=== PATIENT | female | born 1970 | race Caucasian/White ===

== ENCOUNTER 2022-04-23 01:24 | Day surgery (SDC) | payer BC, SELFPAY ==
[2022-04-14 11:23] VITALS: BMI 43.1
[2022-04-23 10:29] VITALS: BP 152/97; PULSE 91; RESP 18; TEMP 36.2; O2SAT 99
[2022-04-23] MEDS: LACTATED RINGERS 1,000 ML 150 ML IV CONT (10:42)
--- NOTE | 2022-04-23 10:51 | WPDGICN ---
Assessment and Plan Assessment and plan (1) GERD (gastroesophageal reflux disease): Code(s): K21.9 - Gastro-esophageal reflux disease without esophagitis Status: Acute Assessment and Plan: Patient with symptoms that appear to correlate with acid reflux disease. She has substernal burning. It these appear to improve on taking acid suppression medications. Continued anti-reflux measures are encouraged because of chronic GE reflux symptoms an EGD will be performed. Continuing pantoprazole 40mg p.o. daily in the interim is advised. Further recommendations may be given after endoscopy. (2) Encounter for screening colonoscopy: Code(s): Z12.11 - Encounter for screening for malignant neoplasm of colon Status: Acute Assessment and Plan: Colonoscopy is recommended for screening purposes because of her age. She appears to be at average risk for colon polyps. Further recommendations will be given after endoscopy. (3) IBS (irritable bowel syndrome): Code(s): K58.9 - Irritable bowel syndrome without diarrhea Status: Acute Assessment and Plan: Fiber supplements may help her alternating diarrhea and constipation. FiberCon 2 tabs p.o. b.i.d. suggested. Colonoscopy to be performed for screening today will assess for any other possible etiologies for symptoms. (4) Obese: Code(s): E66.9 - Obesity, unspecified Status: Acute Assessment and Plan: Weight loss with calorie restriction increase activity are strongly encouraged. GI Consult Note Consult date/time: 04/23/22 10:51 Reason for consult: Epigastric pain in [place] a screening. HPI: Tami Huddleston is a 52 year old female Presents for GI endoscopy. Patient has a long history of GE reflux. She complains of abdominal bloating and pressure that has worsened over last 1 year. She does have a history of substernal burning pain on drinking spicy foods and sodas. She denies this with most regular foods but does notice it with spicy foods. She notices it when taking medications such as trazodone. She was started on pantoprazole over last 1 year with some improvement in her symptoms they have not totally abated. Because of ongoing symptoms an EGD is requested. Patient also notices alternating diarrhea constipation attributed to irritable bowel syndrome. Taking increased fiber has helped this to some degree. She denies any bleeding. She has had no weight loss. Her family history is noncontributory. Review of Systems Review of Systems: Review of systems noncontributory. [facility] Social History Social History Smoking status: Former smoker Tobacco type: cigarettes Alcohol intake: current Drinks per week: 2 Substance use: current Substance use type: marijuana Other substance usage details: CBD/THC GUMMIES Living arrangements: with family Spiritual care concerns: No Meds Home Medications and Allergies Home Medications Medication Instructions Recorded Confirmed Type amlodipine 2.5 mg tablet 2.5 mg PO DAILY 04/14/22 04/14/22 History atorvastatin 20 mg tablet 20 mg PO HS 04/14/22 04/14/22 History clonazepam 0.5 mg tablet 0.5 mg PO DAILY PRN Anxiety 04/14/22 04/14/22 History levothyroxine 150 mcg tablet 150 mcg PO DAILY 04/14/22 04/14/22 History linaclotide 145 mcg capsule 1 cap PO DAILY 04/14/22 04/14/22 History (Linzess) pantoprazole 40 mg tablet,delayed 40 mg PO DAILY 04/14/22 04/14/22 History release sertraline 50 mg tablet (Zoloft) 75 mg PO HS 04/14/22 04/14/22 History trazodone 50 mg tablet 100 mg PO HS 04/14/22 04/14/22 History Allergies Allergy/AdvReac Type Severity Reaction Status Date / Time Sulfa (Sulfonamide Allergy Mild Other Verified 04/23/22 10:28 Antibiotics) Vital Signs Vital Signs - 24 hr 04/23/22 10:29 Temperature 97.2 F L Pulse Rate 91 Respiratory Rate 18 Blood Pressure 152/97 H Pulse Oximetry 99 Oxygen Delivery Room Air
--- NOTE | 2022-04-23 10:58 | P.PNAN_ITS ---
Anes - Initial Pre Proc Eval Procedure: Operation Date: 04/23/22 12:30 Proposed Procedures p Esophagogastroduodenoscopy & Colonoscopy - Milan De La Rosa MD Date/Time: 04/23/22 10:58 Surgeon: Milan De La Rosa MD Pre Op Diagnosis: epigastric pain, neoplasm, GERD, weight loss Patient Data Age: 52 Gender: F Height: 1.63 m Weight: 115.2 kg Last Vital Signs Temp 97.2 F L 04/23/22 10:29 Pulse 91 04/23/22 10:29 Resp 18 04/23/22 10:29 BP 152/97 H 04/23/22 10:29 Pulse Ox 99 04/23/22 10:29 O2 Del Method Room Air 04/23/22 10:29 Allergies Allergy/AdvReac Type Severity Reaction Status Date / Time Sulfa (Sulfonamide Allergy Mild Other Verified 04/23/22 10:28 Antibiotics) Home Medications Medication Instructions Recorded Confirmed Type amlodipine 2.5 mg tablet 2.5 mg PO DAILY 04/14/22 04/14/22 History atorvastatin 20 mg tablet 20 mg PO HS 04/14/22 04/14/22 History clonazepam 0.5 mg tablet 0.5 mg PO DAILY PRN Anxiety 04/14/22 04/14/22 History levothyroxine 150 mcg tablet 150 mcg PO DAILY 04/14/22 04/14/22 History linaclotide 145 mcg capsule 1 cap PO DAILY 04/14/22 04/14/22 History (Linzess) pantoprazole 40 mg tablet,delayed 40 mg PO DAILY 04/14/22 04/14/22 History release sertraline 50 mg tablet (Zoloft) 75 mg PO HS 04/14/22 04/14/22 History trazodone 50 mg tablet 100 mg PO HS 04/14/22 04/14/22 History Patient hx anesthesia problems: none Family hx anesthesia problems: none Results Review: All pre-operative results and documents have been reviewed as part of the pre-operative evaluation. [facility] Social History Social History Smoking status: Former smoker Tobacco type: cigarettes Alcohol intake: current Drinks per week: 2 Substance use: current Substance use type: marijuana Other substance usage details: CBD/THC GUMMIES Living arrangements: with family Spiritual care concerns: No Anes - Eval Final PreProcedure Day of Procedure 04/23/22 10:58 Patient weight: morbidly obese Heart: regular rate and rhythm Lungs: clear to auscultation Airway: Mallampati scale class II Neurological: alert and oriented Last oral intake: >/= 8 hours ASA classification: III Emergent: no Anesthetic plan: proceed Results Review: All pre-operative results and documents have been reviewed as part of the pre- operative evaluation. Informed Consent: The patient's anesthetic plan and its attendant risks and benefits were discussed with the patient/family/POA. Questions were solicited and answers provided to the satisfaction of the patient/family/POA.
--- NOTE | 2022-04-23 11:42 | SUR.OPER ---
EGD END AT 1137. COLONOSCOPY START AT 1143.
[2022-04-23 11:58] VITALS: BP 118/78; PULSE 82; RESP 23; O2SAT 98
[2022-04-23 12:08] VITALS: BP 128/84; PULSE 61; RESP 20; O2SAT 99
[2022-04-23 12:18] VITALS: BP 128/76; PULSE 62; RESP 20; O2SAT 99
== END 2022-04-23 12:40 | disposition home or self-care (01) ==
PROVIDERS: PCP Physician Assistant Medical; Visit Provider Internal Medicine Gastroenterology
PROC: 0DJ08ZZ Inspection of Upper Intestinal Tract, Via Natural or Artificial Opening Endoscopic (ICD-10-PCS; CPT 43235; principal; 2022-04-23 12:30)
DX: Z12.11 Encounter for screening for malignant neoplasm of colon (principal); K64.8 Other hemorrhoids; K58.9 Irritable bowel syndrome, unspecified; K21.9 Gastro-esophageal reflux disease without esophagitis; E66.01 Morbid (severe) obesity due to excess calories; Z68.41 Body mass index [BMI] 40.0-44.9, adult; Z87.891 Personal history of nicotine dependence; F12.90 Cannabis use, unspecified, uncomplicated
CPT/HCPCS: 45378; 43239; 87081; J2704; J7120

== ENCOUNTER 2023-03-24 08:02 | Outpatient (CLI) | payer BC, SELFPAY ==
--- NOTE | 2023-03-24 08:15 | ECHO_ITS ---
Patient Info Name: Tami Huddleston Age: 53 years : 1970 Gender: Female Ht: 64 in Wt: 241 lbs BSA: 2.28 m2 HR: 81 bpm BP: 156 / 85 mmHg Heart Rhythm: Sinus Rhythm Technical Quality: Good Exam Date: 03/24/2023 8:27 AM Exam Location: [facility] Patient Status: Outpatient Admit Date: 03/24/2023 Staff Ordering Physician: Alexa Thakkar PA-C Priming Machine Operator: Yi Bernardo RDCS Attending Provider: Alexa Thakkar PA-C Referring Physician: Bijan SINGH; Exam Type: CA echo doppler color flow Study Info Indications R01.1 - Cardiac murmur, unspecified Complete two-dimensional, color flow and Doppler transthoracic echocardiogram is performed. Summary 1. Complete two-dimensional, color flow and Doppler transthoracic echocardiogram is performed. 2. Left ventricular chamber dimension is normal. 3. Left ventricular systolic function is normal, estimated at 65-70%. 4. The left ventricular diastolic function is grade II diastolic dysfunction. 5. E/e' 13 is mildly elevated. 6. Left atrial chamber dimension is mildly enlarged. 7. There is mild aortic valve sclerosis. 8. There is trace mitral valve regurgitation. Left Ventricle E/e' 13 is mildly elevated. Left ventricular chamber dimension is normal. Left ventricular systolic function is normal, estimated at 65-70%. The left ventricular diastolic function is grade II diastolic dysfunction. Right Ventricle Right ventricular systolic function is normal and with normal TAPSE 2.2 cm. Right ventricular chamber dimension is normal. Left Atria Left atrial chamber dimension is mildly enlarged. Right Atria Right atrial chamber dimension is normal. Aortic Valve The aortic valve is trileaflet. There is mild aortic valve sclerosis. There is no aortic valve stenosis. There is no aortic valve regurgitation. Pulmonic Valve There is no pulmonic regurgitation. Mitral Valve There is no mitral valve stenosis. There is trace mitral valve regurgitation. Tricuspid Valve There is no tricuspid valve regurgitation. Pericardium/Pleural There is no pericardial effusion. Inferior Vena Cava Normal inferior vena cava with >50% collapse upon inspiration consistent with normal right atrial pressure, 5 mmHg. Aorta The aortic root size at the sinus of Valsalva is normal. Tricuspid Valve Name Value Normal Estimated PAP/RSVP RA Pressure 5 mmHg <=5 Report Signatures
== END 2023-03-24 08:03 | disposition home or self-care (01) ==
LOC: ANHCARD 08:02
PROVIDERS: PCP Physician Assistant Medical; Visit Provider Physician Assistant Medical
DX: R01.1 Cardiac murmur, unspecified (principal); I35.1 Nonrheumatic aortic (valve) insufficiency
CPT/HCPCS: 93306

== ENCOUNTER 2025-11-05 12:23 | Outpatient (RCR) | payer OTHER, SELFPAY ==
--- NOTE | 2025-11-05 15:08 | PTOPEVAL1 ---
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 Reports though is chronic, feels like her low back has been worsening. Flared up recently in the last 3 months, had to do a lot of lifting, bending, caring for her mom which has been more care in the last three months. Had seen PT about 16 years ago, and saw a chiropractor which helped at first but didn't care for the thrust maneuvers. [place] that over time this actually worsened things. Another issue that has gotten a lot worse is that she is very clumsy, is bumping into ruiz, loosing balance. Noticed this worsening in the last 6 months. Reports looses her balance, is not dizzy at the time, seems like looses her balance to her right the most. Cervical spine, noticed an aching in the column of the neck and into the base of the skull. Sometimes a burning sensation, but is minor. Just notices it's there. Also reports both shoulders are painful, feels like her posture isn't good. Reports left leg will have N/T not frequency but usually down the back of the leg. Back aggravating factors: standing, bending to citrus picker items at least over 10 lbs, walking can walk but then will have to sit and rest and then can get back up and walk some more. Alleviating: sitting, laying on her sides, Ibuprofen (takes quite a few) Neck aggravating factors: n/a Reported Pain Level Pain Score 3,0: Self Report Assessment PT Clinical Summary Pt presents with complaints of low back pain that at times goes into posterior LLE, as we as cervicalgia though she reports this is minor by comparison. Evaluation today shows significant leg length discrepancy R>L and possible R inominate upslip, decreased lumbar extension, lumbopelvic core weakness, decreased cervical ROM, abnormal alignment and postures. Pt will benefit from physical therapy in order to address deficits, reduce pain, and improve overall functional independence with less discomfort. Plan of Care Interventions Electrical Stimulation,Hot Pack/Cold Pack,Manual Therapy,Mechanical Traction,Neuro Re-education, Patient/Caregiver Education,Therapeutic Activities ,Therapeutic Exercise,Self-Care/Home Management, Ultrasound,Other Other Interventions DME, taping, bracing PT Services Indicated Yes Treatment Frequency and 2-3x weekly x 20 visits Duration These treatments will address the objective and functional deficits as defined above. The patient will be advanced safely and appropriately in order for the patient to progress towards his/her prior level of function. Additional exercises will be introduced and as well as a comprehensive home exercise program upon discharge, if needed, ?to ensure carryover of functional gains achieved in the clinic. This treatment plan has been reviewed and agreement upon by the patient.
--- NOTE | 2025-11-05 15:08 | OPREHPOC ---
Outpatient Therapy Plan of Care This is a Multidisciplinary Plan of Care that may contain components documented by all disciplines (PT, OT, and ST.) PT Problem 1 PT Problem #1 Knowledge Deficit PT Goal 1 Goal / Goal Update Pt will be independent in HEP Pt will verbalize understanding of diagnosis and prognosis Target Visit 10 PT Problem 2 PT Problem #2 Pain PT Goal 1 Goal / Goal Update Pt will report greatest pain level at 5/10 or less in low back to improve ADLs and activities Target Visit 10 PT Goal 2 Goal / Goal Update Pt will report greatest pain level at 3/10 or less in low back to improve ADLs and activities Target Visit 20 PT Problem 3 PT Problem #3 Impaired Sensation PT Goal 1 Goal / Goal Update Pt will report resolution of LLE symptoms Target Visit 10 PT Goal 2 Goal / Goal Update Pt will report resolution of cervicogenic headaches Target Visit 20 PT Problem 4 PT Problem #4 Impaired Strength PT Goal 1 Goal / Goal Update Pt will demonstrate 3+/5 strength in lumbopelvic core for improved lumbar stability Target Visit 10 PT Goal 2 Goal / Goal Update Pt will demonstrate 4/5 strength in lumbopelvic core for improved lumbar stability Target Visit 20 PT Problem 5 PT Problem #5 Impaired Range of Motion PT Goal 1 Goal / Goal Update Pt will demonstrate lateral flexion cervical spine of 45 degrees sepideh for improved cervical mobility and decreased pain Target Visit 10
--- NOTE | 2025-11-12 17:32 | PTOPDC ---
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 Reports though is chronic, feels like her low back has been worsening. Flared up recently in the last 3 months, had to do a lot of lifting, bending, caring for her mom which has been more care in the last three months. Had seen PT about 16 years ago, and saw a chiropractor which helped at first but didn't care for the thrust maneuvers. [place] that over time this actually worsened things. Another issue that has gotten a lot worse is that she is very clumsy, is bumping into ruiz, loosing balance. Noticed this worsening in the last 6 months. Reports looses her balance, is not dizzy at the time, seems like looses her balance to her right the most. Cervical spine, noticed an aching in the column of the neck and into the base of the skull. Sometimes a burning sensation, but is minor. Just notices it's there. Also reports both shoulders are painful, feels like her posture isn't good. Reports left leg will have N/T not frequency but usually down the back of the leg. Back aggravating factors: standing, bending to sweet pickle maker items at least over 10 lbs, walking can walk but then will have to sit and rest and then can get back up and walk some more. Alleviating: sitting, laying on her sides, Ibuprofen (takes quite a few) Neck aggravating factors: n/a Assessment PT Clinical Summary Pt was seen for her initial evaluation, and TENS unit request sent for her chronic pain. Unfortunately, pt's insurance provider would not authorize treatment at our facility. Pt was called and informed of this and requested discharge from this POC. Plan of Care PT Services Indicated No
== END 2025-11-13 11:05 | disposition home or self-care (01) ==
LOC: ANHHIPT 12:23
PROVIDERS: PCP Physician Assistant Medical; Visit Provider Physician Assistant Medical
DX: M54.2 Cervicalgia (principal); M54.50 Low back pain, unspecified; G89.29 Other chronic pain
CPT/HCPCS: 97014; 97162; 97530; G0283